=== PATIENT | female | born 1965 | race Caucasian/White ===

== ENCOUNTER 2023-02-24 13:03 | Outpatient (CLI) | payer MEDICAID, SELFPAY ==
--- NOTE | 2023-02-24 | MM_ITS ---
WS: [id number] VIEWS: MLO and CC views both breasts. 3D digital tomosynthesis is also included in this exam. no prior exams.. Findings: There is an 8 mm ovoid nodule partially obscured At the 2 o'clock position in the LEFT breast at ante rior depth. No suspicious calcification or architectural distortion. This may be a cyst. Regional ult rasound of the LEFT breast is indicated for further work-up. The remaining aspects of both breast dem onstrate no significant abnormal finding. There are scattered areas of fibroglandular density. Impression: MM/[place] [id number] BI-RADS: 0-Incomplete: Need additional imaging evaluation FOLLOW-UP: See Report This mammogram was also analyzed by the Computer Aided Detection System R2 Imag e Head Of Quality.
== END 2023-02-24 13:04 | disposition home or self-care (01) ==
LOC: MOBLMAM 13:09
PROVIDERS: Visit Provider Nurse Practitioner Family
DX: Z12.31 Encounter for screening mammogram for malignant neoplasm of breast (principal)
CPT/HCPCS: 77063; 77067